=== PATIENT | male | born 1985 | race Caucasian/White ===

== ENCOUNTER 2021-01-26 07:44 | Emergency (ER) | payer BC, OTHER ==
[2021-01-26 07:54] VITALS: BP 125/65; PULSE 68; RESP 18; TEMP 97.6
[2021-01-26] MEDS ORDERED: CYCLOBENZAPRINE 10 MG TAB PO STA (08:26)
[2021-01-26] MEDS ORDERED: HYDROcodone/APAP 5-325MG 1 EACH TAB PO STA (08:26)
[2021-01-26] MEDS ORDERED: ACET/COD 300 MG/30 MG STARTER PACK 6 TAB BTL PO STA (08:27)
--- NOTE | 2021-01-26 08:31 | ED ---
Back Pain HPI - General Chief Complaint: Back Pain/Injury Stated Complaint: back pain Time Seen by Provider: 01/26/21 08:00 Source: patient, family, RN notes reviewed Limitations: no limitations - History of Present Illness Initial Comments: 35-year-old male presents emergency Department with chief complaint of low back pain. Patient states yesterday at work he went to push a heavy rack and states that he may have strained his back. He states when he got home started stiffening up and having low back pain. Denies any bowel bladder incontinence or retention or saddle anesthesia. Patient states pain is better at rest worse with movement he states he had an injury approximately year ago but was slightly different. Patient denies any social weakness or abdominal pain - Related Data Home Medications Medication Instructions Recorded Confirmed Dextroamphetamine/Amphetamine 20 mg PO DAILY 02/14/16 02/14/16 [Adderall] Previous Rx's Medication Instructions Recorded Amoxicillin/Potassium Clav 1 each PO Q12HR #20 tab 02/14/16 [Augmentin 875-125 Tablet] Fluticasone Propionate [Flonase 1 - 2 spray EA NOSTRIL DAILY 5 02/14/16 Allergy Relief] Days ml Loratadine [Claritin] 10 mg PO DAILY 20 Days tab 02/14/16 Cyclobenzaprine [Flexeril] 10 mg PO TID PRN #15 tab 01/26/21 Ibuprofen [Motrin] 600 mg PO Q8HR PRN #20 tab 01/26/21 Allergies Allergy/AdvReac Type Severity Reaction Status Date / Time No Known Allergies Allergy Verified 01/26/21 07:54 Review of Systems ROS Statement: Those systems with pertinent positive or pertinent negative responses have been documented in the HPI. ROS Other: All systems not noted in ROS Statement are negative. Past Medical History Past Medical History: No Reported History Additional Past Medical History / Comment(s): adhd History of Any Multi-Drug Resistant Organisms: None Reported Past Surgical History: No Surgical Hx Reported Past Psychological History: No Psychological Hx Reported Smoking Status: Current every day smoker Past Alcohol Use History: Rare Past Drug Use History: None Reported General Exam Limitations: no limitations General appearance: alert, in no apparent distress Head exam: Present: atraumatic, normocephalic, normal inspection Respiratory exam: Present: normal lung sounds bilaterally. Absent: respiratory distress, wheezes, rales, rhonchi, stridor Cardiovascular Exam: Present: regular rate, normal rhythm, normal heart sounds. Absent: systolic murmur, diastolic murmur, rubs, gallop, clicks GI/Abdominal exam: Present: soft, normal bowel sounds. Absent: distended, tenderness, guarding, rebound, rigid Extremities exam: Present: other (STRENGTH EQUAL BILATERALLY, PAIN WITH STRAIGHT LEG RAISE BILATERALLY, NEUROVASCULAR INTACT) Back exam: Present: full ROM (Pain with range of motion), tenderness (Lumbar), muscle spasm, paraspinal tenderness. Absent: vertebral tenderness Neurological exam: Present: alert, oriented X3, reflexes normal. Absent: motor sensory deficit Skin exam: Present: warm, dry, intact, normal color. Absent: rash Course Vital Signs 01/26/21 07:51 Temperature 97.6 F Pulse Rate 68 Respiratory 18 Rate Blood Pressure 125/65 O2 Sat by Pulse 95 Oximetry Medical Decision Making - Medical Decision Making 35-year-old presented for low back pain. Patient has a lumbar strain no red flag symptoms. Patient provided pain control discuss stretching and close follow-up. Disposition Clinical Impression: Strain of lumbar region Disposition: HOME SELF-CARE Condition: Stable Instructions (If sedation given, give patient instructions): Acute Low Back Pain (ED) Additional Instructions: Please return to the Emergency Department if symptoms worsen or any other concerns. Prescriptions: Cyclobenzaprine [Flexeril] 10 mg PO TID PRN #15 tab PRN Reason: Muscle Spasm Ibuprofen [Motrin] 600 mg PO Q8HR PRN #20 tab PRN Reason: Pain Is patient prescribed a controlled substance at d/c from ED?: No Referrals: None,Stated [Primary Care Provider] - 1-2 days Time of Disposition: 08:29
== END 2021-01-26 08:42 | disposition home or self-care (01) ==
LOC: EC 07:44
DX: S39.012A Strain of muscle, fascia and tendon of lower back, initial encounter (principal); F17.200 Nicotine dependence, unspecified, uncomplicated; X50.0XXA Overexertion from strenuous movement or load, initial encounter
CPT/HCPCS: 99283